=== PATIENT | female | born 1945 | race Caucasian/White ===

== ENCOUNTER 2019-02-21 15:04 | Emergency (ER) | payer BC, OTHER ==
[~2019-02-21] VITALS: Ht 172.7 cm; Wt 62.1 kg
[2019-02-21 15:24] VITALS: Ht 172.7 cm; Wt 62.1 kg
[2019-02-21] MEDS ORDERED: SOD CHLORIDE 0.9% 500 ML IV STA (16:27)
--- NOTE | 2019-02-21 16:29 | ERD ---
ER Documentation Chief Complaint Chief Complaint light-headedness X 1 wk, "not feeling right", recent stress HPI 73-year-old woman complaining of cloudiness x1 week, not feeling right, and trouble thinking sometimes. She states she has been under a lot of stress recently due to arguments with her son and . She denies dysuria, no hematuria, no weight loss, no blurry vision, no chest pain or shortness of breath, no weakness in her arms or legs, no slurred speech. ROS All systems reviewed and are negative except as per history of present illness. Medications Home Meds Active Scripts Ibuprofen* (Motrin*) 600 Mg Tab, 600 MG PO Q8 PRN for PAIN AND/OR INFLAMMATION, #30 TAB Prov:ANTOLIN MENDEZ MD 02/21/19 Cephalexin* (Keflex*) 500 Mg Capsule, 500 MG PO QID for 5 Days, CAP Prov:ANTOLIN MENDEZ MD 02/21/19 Allergies Allergies: Coded Allergies: No Known Allergy (Unverified , 02/21/19) FmHx Family History: No diabetes Physical Exam Vitals Vital Signs Date Temp Pulse Resp B/P (MAP) Pulse Ox O2 O2 Flow FiO2 Time Delivery Rate 02/21/19 98.2 69 18 139/73 98 Room Air 18:16 (95) 02/21/19 99.5 80 18 154/82 97 15:24 (106) Physical Exam GENERAL: Well-developed, well-nourished, well-hydrated, in no apparent distress, looks nontoxic in appearance HEENT: Moist mucous membranes, pink conjunctiva, no cervical spine tenderness or step-off deformities, no goiter, no jaundice or icterus, extraocular movements intact without pain. No submandibular induration, and no pharyngeal erythema NEURO: Alert and oriented 3, cranial nerves II through XII intact bilaterally, pupils equal round reactive to light, no focal deficits or facial asymmetry, sensation intact distally Strength 5/5 in upper and lower extremities bilaterally CARDIAC: Regular rate and rhythm, no murmurs rubs or gallops LUNGS: Clear bilaterally no wheezing crackles or stridor ABDOMEN: Soft nontender, no guarding, no rigidity, no rebound, no psoas sign no obturator sign. Normoactive bowel sounds SKIN: Warm and dry to touch, no abrasions, contusions, or hematomas, no lacerations, no ecchymosis, no target lesions, and without ulcers EXTREMITIES: No clubbing cyanosis or edema, calves are bilaterally symmetrical, no Homans sign, no popliteal cord sign. Distal pulses equal and bilateral PSYCH: Normal affect without agitation or irritability Result Diagram: 02/21/19 1638 02/21/19 1638 Results 24 hrs Laboratory Tests Test 02/21/19 16:38 White Blood Count 4.7 10^3/ul Red Blood Count 4.41 10^6/ul Hemoglobin 13.4 g/dl Hematocrit 39.2 % Mean Corpuscular Volume 88.9 fl Mean Corpuscular Hemoglobin 30.4 pg Mean Corpuscular Hemoglobin Concent 34.2 g/dl Red Cell Distribution Width 13.6 % Platelet Count 191 10^3/UL Mean Platelet Volume 10.0 fl Immature Granulocytes % 0.200 % Neutrophils % 48.2 % Lymphocytes % 42.6 % Monocytes % 7.3 % Eosinophils % 1.1 % Basophils % 0.6 % Nucleated Red Blood Cells % 0.0 /100WBC Immature Granulocytes # 0.010 10^3/ul Neutrophils # 2.3 10^3/ul Lymphocytes # 2.0 10^3/ul Monocytes # 0.3 10^3/ul Eosinophils # 0.1 10^3/ul Basophils # 0.0 10^3/ul Nucleated Red Blood Cells # 0.0 10^3/ul Urine Color YELLOW Urine Clarity CLEAR Urine pH 7.0 Urine Specific Jackson 1.005 Urine Ketones NEGATIVE mg/dL Urine Nitrite NEGATIVE mg/dL Urine Bilirubin NEGATIVE mg/dL Urine Urobilinogen NEGATIVE mg/dL Urine Leukocyte Esterase 2+ Joycelyn/ul Urine Microscopic RBC 1 /HPF Urine Microscopic WBC 7 /HPF Urine Squamous Epithelial Cells FEW /HPF Urine Bacteria FEW /HPF Urine Hemoglobin 1+ mg/dL Urine Glucose NEGATIVE mg/dL Urine Total Protein NEGATIVE mg/dl Sodium Level 141 mmol/L Potassium Level 4.0 mmol/L Chloride Level 104 mmol/L Carbon Dioxide Level 29 mmol/L Anion Gap 8 Blood Urea Nitrogen 10 mg/dl Creatinine 0.64 mg/dl Est Glomerular Filtrat Rate mL/min mL/min Glucose Level 101 mg/dl Calcium Level 9.5 mg/dl Total Bilirubin 0.6 mg/dl Direct Bilirubin 0.00 mg/dl Indirect Bilirubin 0.6 mg/dl Aspartate Amino Transf (AST/SGOT) 42 IU/L Alanine Aminotransferase (ALT/SGPT) 18 IU/L Alkaline Phosphatase 86 IU/L Troponin I < 0.012 ng/ml Total Protein 7.8 g/dl Albumin 4.4 g/dl Globulin 3.40 g/dl Albumin/Globulin Ratio 1.29 Lipase 165 U/L Current Medications Medications Dose Sig/Darlene Start Time Status Last (Trade) Ordered Route PRN Stop Time Admin Dose Reason Admin Sodium 500 ml @ Q1H STAT 02/21/19 DC 02/21/19 Chloride 500 mls/hr IV 16:27 16:51 02/21/19 17:26 Alprazolam 0.5 mg ONCE ONCE 02/21/19 DC 02/21/19 (Xanax) PO 16:30 16:51 02/21/19 16:31 Ceftriaxone 50 ml @ ONCE ONCE 02/21/19 DC 02/21/19 Sodium 100 mls/hr IVPB 17:30 17:35 02/21/19 17:59 Procedures/MDM IV line was established patient was placed on cafeteria monitor rhythm strip revealed a sinus rhythm at about 80 bpm with upright P and T waves. Patient was afebrile EKG performed, read by me revealed a normal sinus rhythm at 84 bpm, normal axis, narrow QRS complex, no concerning ST elevations or depressions noted. I administered 1 L normal saline IV and alprazolam 0.5 mg p.o. x1 CBC and electrolytes were normal, liver function tests were normal, troponin was negative, urine analysis was positive for infection. I administered ceftriaxone 1 g IV Differential diagnoses considered, included but not limited to acute coronary syndrome, pulmonary embolism, aortic dissection, abdominal aortic aneurysm, sepsis, stroke, meningitis, encephalitis, pneumonia, appendicitis, cholecystitis, bowel obstruction, pyelonephritis, nephrolithiasis, cystitis, as well as metabolic, hematologic, and electrolyte abnormalities. As well as abscess, cellulitis, fractures, and dislocations. Patient feels much better at this time, and vital signs are normal, symptoms have improved. I did give strict instructions to return to the ED if symptoms continue or worsen, patient will otherwise follow-up with primary care physician. Patient understood instructions and agreed to plan. Disclaimer: Inadvertent spelling and grammatical errors are likely due to EHR/dictation software use and do not reflect on the overall quality of patient care. Also, please note that the electronic time recorded on this note does not necessarily reflect the actual time of the patient encounter. Departure Diagnosis: Primary Impression: Acute UTI Ruled Out: Anxiety Condition: Good ANTOLIN MENDEZ MD Feb 21, 2019 16:29
[2019-02-21] MEDS ORDERED: ALPRAZOLAM 0.25 MG TAB PO ONE (16:30)
[2019-02-21] MEDS ORDERED: IBUP-1542 PO (17:27)
[2019-02-21] MEDS ORDERED: CEPH-443 PO (17:27)
[2019-02-21] MEDS ORDERED: CEFTRIAXONE 1 GM/50 ML (PMX) 50 ML IVPB ONE (17:30)
[2019-02-21 18:16] VITALS: BP 139/73; PULSE 69; RESP 18
== END 2019-02-21 18:26 | disposition home or self-care (01) ==
LOC: E/R 15:04
DX: N39.0 Urinary tract infection, site not specified (principal)
CPT/HCPCS: 36415; 80053; 81001; 83690; 84484; 85025; 93005; 96374; 99284; J0696; J7040